=== PATIENT | female | born 1960 | race Caucasian/White ===

== ENCOUNTER 2016-12-08 18:32 | Emergency (ER) | payer BC ==
[2016-12-08 18:47] VITALS: BP 148/76; PULSE 99; TEMP 98.5; BMI 36.1
[2016-12-08 20:56] LABS: BASOPHIL 0.3 % (0-2.0); EOSINOPHIL 1.3 % (0-4.5); MCH 29.2 pg (25.7-33.7); MEAN CELL VOLUME 88.4 fl (80-96); MEAN PLT VOLUME 8.3 fl (7.5-11.1); NEUTROPHILS 54.1 % (42.8-82.8); PLATELET COUNT 239 K/MM3 (134-434); RDW 14.4 % (11.6-15.6); WHITE BLOOD COUNT 8.9 K/mm3 (4.0-10.0)
[2016-12-08 21:25] LABS: ALBUMIN 3.9 g/dl (3.4-5.0); ALK PHOS 84 U/L (45-117); ANION GAP 5 (8-16); BILIRUBIN,TOTAL 0.3 mg/dL (0.2-1.0); CALCIUM 9.1 mg/dL (8.5-10.1); CO2 30 mmol/L (21-32); CREATININE 0.7 mg/dL (0.55-1.02); GLUCOSE,RANDOM 87 mg/dL (74-106); SGOT/AST 24 U/L (15-37); SGPT/ALT 39 U/L (12-78); TOT PROT 7.7 g/dl (6.4-8.2)
--- NOTE | 2016-12-08 21:46 | PDOC ---
History of Present Illness - History of Present Illness Initial Comments: 12/08/16 23:00 The patient is a 56 year old female, trinidadian speaking, with a significant past medical history of hypercholesterolemia (lipitor), who presents to the emergency department sent by her PCP with Rx for lab testing for evaluation of double vision and dizziness for about 3 weeks. She states the vision in her right eye is unclear and reports her double vision is improved with covering one eye. She states she feels dizzy which she describes as room spinning. She denies chest pain, shortness of breath, headache. She denies fever, chills, nausea, vomit, diarrhea and constipation. She denies dysuria, frequency, urgency and hematuria. Allergies: NKDA PCP - Dr. Singleton <Lurdes Harrington - Last Filed: 12/08/16 23:45> - General History Source: Patient Exam Limitations: No Limitations <Yakelin Kay - Last Filed: 12/09/16 00:47> - General Chief Complaint: Lightheaded Stated Complaint: PCP SENT/DIZZINESS Past History <Lurdes Harrington - Last Filed: 12/08/16 23:45> - Past Medical History GI Disorders: Yes (gerd) Hypercholesterolemia: Yes Thyroid Disease: Yes (hypo) Other medical history: back pain,vertigo - Suicide/Smoking/Psychosocial Hx Smoking History: Never smoked Hx Alcohol Use: No Drug/Substance Use Hx: No <Yakelin Kay - Last Filed: 12/09/16 00:47> - Past Medical History Allergies/Adverse Reactions: Allergies Allergy/AdvReac Type Severity Reaction Status Date / Time No Known Allergies Allergy Verified 12/08/16 18:37 Home Medications: Ambulatory Orders Atorvastatin Ca [Lipitor] 20 mg PO HS 12/08/16 Cyclobenzaprine HCl [Flexeril -] 10 mg PO HS 12/08/16 Dexlansoprazole [Dexilant] 60 mg PO DAILY 12/08/16 Gabapentin 300 mg PO DAILY 12/08/16 Hydrocodone/Acetaminophen [Hydrocodon-Acetaminophen 5-300] 1 each PO DAILY PRN 12/08/16 Levothyroxine [Synthroid -] 25 mcg PO DAILY 12/08/16 Meloxicam [Mobic (Nf) -] 15 mg PO DAILY 12/08/16 Ranitidine HCl [Zantac] 150 mg PO DAILY 12/08/16 Zolpidem Tartrate 10 mg PO HS 12/08/16 Diazepam [Valium] 2 mg PO TID PRN #10 tablet MDD 3 12/09/16 Review of Systems - Review of Systems Able to Perform ROS?: Yes Comments:: 12/08/16 23:43 GENERAL/CONSTITUTIONAL: No fever or chills. No weakness. HEAD, EYES, EARS, NOSE AND THROAT: (+) double vision. No ear pain or discharge. No sore throat. CARDIOVASCULAR: No chest pain or shortness of breath. RESPIRATORY: No cough, wheezing, or hemoptysis. GASTROINTESTINAL: No nausea, vomiting, diarrhea or constipation. GENITOURINARY: No dysuria, frequency, or change in urination. MUSCULOSKELETAL: No joint or muscle swelling or pain. No neck or back pain. SKIN: No rash NEUROLOGIC: (+) dizziness. No headache, loss of consciousness, or change in strength/sensation. ENDOCRINE: No increased thirst. No abnormal weight change. HEMATOLOGIC/LYMPHATIC: No anemia, easy bleeding, or history of blood clots. ALLERGIC/IMMUNOLOGIC: No hives or skin allergy. <Lurdes Harrington - Last Filed: 12/08/16 23:45> *Physical Exam - Vital Signs Last Vital Signs Temp Pulse Resp BP Pulse Ox 98.5 F 99 H 18 148/76 100 12/08/16 18:38 12/08/16 18:38 12/08/16 18:38 12/08/16 18:38 12/08/16 18:38 - Physical Exam Comments: 12/08/16 23:44 GENERAL: Awake, alert, and fully oriented, in no acute distress HEAD: No signs of trauma EYES: PERRLA, EOMI, sclera anicteric, conjunctiva clear ENT: Auricles normal inspection, hearing grossly normal, nares patent, oropharynx clear without exudates. Moist mucosa NECK: Normal ROM, supple, no lymphadenopathy, JVD, or masses LUNGS: Breath sounds equal, clear to auscultation bilaterally. No wheezes, and no crackles HEART: Regular rate and rhythm, normal S1 and S2, no murmurs, rubs or gallops ABDOMEN: Soft, nontender, normoactive bowel sounds. No guarding, no rebound. No masses EXTREMITIES: Normal range of motion, no edema. No clubbing or cyanosis. No cords , erythema, or tenderness NEUROLOGICAL: Cranial nerves II through XII grossly intact. Normal speech, normal gait SKIN: Warm, Dry, normal turgor, no rashes or lesions noted. <Lurdes Harrington - Last Filed: 12/08/16 23:45> - Vital Signs Last Vital Signs Temp Pulse Resp BP Pulse Ox 98.5 F 99 H 18 148/76 100 12/08/16 18:38 12/08/16 18:38 12/08/16 18:38 12/08/16 18:38 12/08/16 18:38 <DenisanomanYakelin - Last Filed: 12/09/16 00:47> Heart Score/ECG Review #1 General ECG Interpretation: Sinus Rhythm, Normal Rate (85), Normal Intervals, No acute ischemic changes <DenisanomanYakelin - Last Filed: 12/09/16 00:47> ED Treatment Course - LABORATORY CBC & Chemistry Diagram: 12/08/16 20:41 12/08/16 20:41 - ADDITIONAL ORDERS Additional order review: Laboratory Results 12/08/16 20:41 Sodium 139 Potassium 4.1 Chloride 104 Carbon Dioxide 30 Anion Gap 5 L BUN 10 Creatinine 0.7 Creat Clearance w eGFR > 60 Random Glucose 87 Calcium 9.1 Total Bilirubin 0.3 AST 24 ALT 39 Alkaline Phosphatase 84 Total Protein 7.7 Albumin 3.9 12/08/16 20:41 RBC 4.76 MCV 88.4 MCHC 33.0 RDW 14.4 MPV 8.3 Neutrophils % 54.1 Lymphocytes % 37.2 Monocytes % 7.1 Eosinophils % 1.3 Basophils % 0.3 - RADIOLOGY Radiograph Interpretation: EXAM#: TYPE/EXAM: RESULT: [id number] CT/HEAD CT WITHOUT CONTRAST Cranial CT without contrast Clinical information: vertigo, blurred vision Multiplanar imaging was performed. No intracranial hemorrhage is seen. There is no discrete infarct within the limitations of CT. no extra-axial fluid collection is noted. There is no gross mass lesion. The ventricles and cisterns appear unremarkable. Impression: No CT evidence of acute intracranial pathology. Reported By: Earnest <Lurdes Harrington - Last Filed: 12/08/16 23:45> - LABORATORY CBC & Chemistry Diagram: 12/08/16 20:41 12/08/16 20:41 - ADDITIONAL ORDERS Additional order review: Laboratory Results 12/08/16 20:41 Sodium 139 Potassium 4.1 Chloride 104 Carbon Dioxide 30 Anion Gap 5 L BUN 10 Creatinine 0.7 Creat Clearance w eGFR > 60 Random Glucose 87 Calcium 9.1 Total Bilirubin 0.3 AST 24 ALT 39 Alkaline Phosphatase 84 Total Protein 7.7 Albumin 3.9 12/08/16 20:41 RBC 4.76 MCV 88.4 MCHC 33.0 RDW 14.4 MPV 8.3 Neutrophils % 54.1 Lymphocytes % 37.2 Monocytes % 7.1 Eosinophils % 1.3 Basophils % 0.3 <Yakelin Kay - Last Filed: 12/09/16 00:47> Medical Decision Making - Medical Decision Making 12/08/16 23:45 Dr. Singleton was called at [phone] and the patient's case was discussed. <Lurdes Harrington - Last Filed: 12/08/16 23:45> - Medical Decision Making 12/08/16 21:43 56 yo F with h/o here wtih c/o blurry vision, worse on right side , also c/o double vision. has had problem for [address] figueredo today who sent to ED for evaluation. pt does have vertiginous component. double vision is improved with covering one eye. no f/c no weight loss no other complaints. on exam awake alert lungs clear heart rrr nomrg.abd soft ntndn. ext wwp no edema. nuero awake alert oriented x 2. eomi. CN intact. 5/[address] head, labs . dw pcp. differential includes, tumor, distal palsy, optic n. problem, electrolyte abnromality. 12/08/16 23:[address] head normal, labs unremarkable. lyme sent and pending. d/w dr singleton [phone] . will see in office. recommend outp eval by dr. hooks. and optho. will give pt number. <Yakelin Kay - Last Filed: 12/09/16 00:47> *DC/Admit/Observation/Transfer - Attestations Scribe Attestion: 12/08/16 22:46 Documentation prepared by Lurdes Harrington, acting as medical staff credentialing coordinator for Yakelin Kay MD, <Lurdes Harrington - Last Filed: 12/08/16 23:45> - Discharge Dispostion Admit: No <Yakelin Kay - Last Filed: 12/09/16 00:47> Diagnosis at time of Disposition: Vertigo - Discharge Dispostion Disposition: HOME Condition at time of disposition: Improved - Referrals Referrals: Blayne Singleton MD [Primary Care Provider] - Manuel Hooks MD [Staff Physician] - - Patient Instructions Printed Discharge Instructions: Vertigo (Alternative Therapy) Additional Instructions: you should follow up a nuerologist. call dr Hooks to schedule, see referral number for information. you can take meclizine 25 mg every 6 hours as needed for vertigo. for persistant symptoms you can also take valium 2 mg every [address] after taking medication and do not mix with alcohol. return for any problems or concerns. you can also follow up wtih a opthomologist. see number for dr Cervantes, call to schedule. Print Language: HUNGARIAN
[2016-12-08 23:15] LABS: URINE APPEARANCE SLCLOUDY; URINE BILIRUBIN NEGATIVE (NEGATIVE); URINE BLOOD NEGATIVE (NEGATIVE); URINE COLOR YELLOW; URINE GLUCOSE (UA) NEGATIVE (NEGATIVE); URINE KETONE TRACE (NEGATIVE); URINE NITRITE NEGATIVE (NEGATIVE); URINE PROTEIN NEGATIVE (NEGATIVE); URINE UROBILINOGEN NEGATIVE mg/dL (0.2-1.0)
[2016-12-08 23:16] LABS: URINE LEUK ESTERASE 2+ (NEGATIVE)
[2016-12-08 23:19] LABS: URINE BACTERIA RARE /hpf (NONE SEEN); URINE MUCUS RARE; URINE RBC 4 /hpf (0-3); URINE WBC 6 /hpf (3-5)
[2016-12-09] MEDS ORDERED: MECLIZINE HCL 25 MG TABLET (FP) PO ONE (00:41)
[2016-12-09] MEDS ORDERED: diazePAM 2 MG TABLET PO ONE (00:41)
[2016-12-09] MEDS ORDERED: diazePAM 2 MG TABLET ONE (00:46)
[2016-12-09] MEDS ORDERED: MECLIZINE HCL 25 MG TABLET (FP) ONE (00:47)
--- NOTE | 2016-12-09 21:22 | EKG ---
Test Reason : Blood Pressure : / mmHG Vent. Rate : 085 BPM Atrial Rate : 085 BPM P-R Int : 146 ms QRS Dur : 080 ms QT Int : 384 ms P-R-T Axes : 055 026 051 degrees QTc Int : 456 ms NORMAL SINUS RHYTHM BASELINE ARTIFACTS LOW VOLTAGE QRS POSITIONAL FACTORS ABNORMAL ECG NO PREVIOUS ECGS AVAILABLE REPEAT EKG IF CLINICALLY INDICATED Confirmed by PATI STEPHENS MD ([id number]) on 12/09/2016 9:22:32 PM Referred By: Confirmed By:PATI STEPHENS MD
== END 2016-12-09 00:55 | disposition home or self-care (01) ==
LOC: JER 18:32
DX: R42 Dizziness and giddiness (principal); E78.00 Pure hypercholesterolemia, unspecified; E03.9 Hypothyroidism, unspecified; K21.9 Gastro-esophageal reflux disease without esophagitis
CPT/HCPCS: 36415; 70450-TC; 80053; 81003; 81015; 85025; 85651; 93005; 93010; 99282-25

== ENCOUNTER 2022-01-14 11:32 | Emergency (ER) | payer BC ==
[2022-01-14 12:17] VITALS: BP 126/80; PULSE 99; RESP 19; TEMP 98.3; BMI 35.4
[2022-01-14 14:25] LABS: BASO % 0.4 % (0-2.0); EOS % 1.9 % (0-4.5); HEMATOCRIT 39.7 % (32.4-45.2); HEMOGLOBIN 12.4 GM/dL (10.7-15.3); LYMPH % 33.1 % (8-40); MCH 28.3 pg (25.7-33.7); MCHC 31.3 g/dl (32.0-36.0); MEAN CELL VOLUME 90.5 fl (80-96); MEAN PLT VOLUME 8.5 fl (7.5-11.1); MONO % 7.7 % (3.8-10.2); NEUT % 56.9 % (42.8-82.8); PLATELET COUNT 262 10^3/uL (134-434); RBC 4.39 M/mm3 (3.60-5.2); RDW 15.2 % (11.6-15.6)
[2022-01-14 14:30] LABS: INR 1.03 (0.83-1.09); PROTHROMBIN TIME (PATIENT) 11.9 SEC (9.7-13.0)
[2022-01-14 14:32] LABS: ACTIVATED PTT 29.3 SECONDS (25.2-36.5)
[2022-01-14 14:44] LABS: CHLORIDE 108 mmol/L (98-107); SODIUM 141 mmol/L (136-145)
[2022-01-14 14:46] LABS: CALCIUM 9.8 mg/dL (8.5-10.1)
[2022-01-14 14:47] LABS: ALBUMIN 3.6 g/dl (3.4-5.0); ANION GAP 7 MMOL/L (8-16); BLOOD UREA NITROGEN 11.5 mg/dL (7-18); CO2 26 mmol/L (21-32); GLUCOSE,RANDOM 105 mg/dL (74-106)
[2022-01-14 14:50] LABS: CREATININE 0.7 mg/dL (0.55-1.3); SGOT/AST 35 U/L (15-37)
[2022-01-14 14:51] LABS: TOT PROT 7.2 g/dl (6.4-8.2)
[2022-01-14 14:52] LABS: BILIRUBIN,TOTAL 0.3 mg/dL (0.2-1)
[2022-01-14 14:53] LABS: ALK PHOS 105 U/L (45-117)
[2022-01-14 14:59] LABS: SGPT/ALT 39 U/L (13-61)
[2022-01-14 15:33] LABS: ERYTHROCYTE SEDIMENTATION RATE 50 mm/hr (0-30)
== END 2022-01-14 15:44 | disposition home or self-care (01) ==
LOC: JER 11:32
DX: T81.40XA Infection following a procedure, unspecified, initial encounter (principal)
CPT/HCPCS: 0241U-QW; 36415; 80053; 85025; 85610; 85651; 85730; 86140; 86850; 86900; 86901; 87040; 93005; 93010; 99284-25